=== PATIENT | female | born 1980 | race Caucasian/White ===

== ENCOUNTER → 2016-10-16 | Outpatient (CLI) | payer BC ==
--- NOTE | 2016-10-16 12:17 | REP ---
Clinical: Contusion. Technique: Frontal view of the chest with multiple views of the bilateral hemithoraces. Findings: Nondisplaced anterior right ninth and left ninth and tenth rib fractures. Mediastinum and cardiac silhouette normal. Lung gama clear. No consolidation/contusion, effusion, or pneumothorax. Impression: Right ninth and left ninth and tenth anterolateral rib fractures. Signed by Brad Aguirre MD 10/16/2016 12:08 P
--- NOTE | 2016-10-16 12:19 | REP ---
Clinical: Contusion. Technique: Single supine view of the abdomen and pelvis. Findings: Acute left tenth rib and the right ninth rib fractures are identified. Bowel gas pattern is nonspecific. No organomegaly. Impression: Acute left tenth and right ninth rib fractures. Nonspecific bowel gas pattern. Signed by Brad Aguirre MD 10/16/2016 12:10 P
== END ==
LOC: M WUC 11:47
PROVIDERS: ATTEND Physician Assistant
DX: S22.31XA Fracture of one rib, right side, initial encounter for closed fracture (principal); S22.42XA Multiple fractures of ribs, left side, initial encounter for closed fracture; X58.XXXA Exposure to other specified factors, initial encounter; Y93.9 Activity, unspecified; Y92.9 Unspecified place or not applicable; Y99.8 Other external cause status

== ENCOUNTER → 2019-04-12 | Outpatient (CLI) | payer BC ==
[2019-04-12 20:19] LABS: BASO % 0.3 % (0.0-1.0); EOS % 0.3 % (0.0-3.0); HEMATOCRIT 41.7 % (36.0-47.0); HEMOGLOBIN 13.8 g/dl (12.0-15.5); LYMPH # 0.8 10^3/uL (1.5-4.5); LYMPH % 8.7 % (24.0-44.0); MEAN CORPUSCULAR HEMOGLOBIN 32.2 pg (27.0-33.0); MEAN CORPUSCULAR HGB CONC 33.1 g/dl (32.0-36.5); MEAN CORPUSCULAR VOLUME 97.4 fl (80.0-96.0); MONO # 0.7 10^3/uL (0.0-0.8); MONO % 7.5 % (0.0-5.0); NEUTROPHILS # 7.7 10^3/uL (1.8-7.7); PLATELET COUNT, AUTOMATED 257 10^3/uL (150-450); RED BLOOD COUNT 4.28 10^6/uL (4.00-5.40); WHITE BLOOD COUNT 9.3 10^3/uL (4.0-10.0)
[2019-04-12 20:30] LABS: ALT/SGPT 40 U/L (12-78); AMYLASE 48 U/L (25-115); BILIRUBIN,TOTAL 0.7 MG/DL (0.2-1.0); BLOOD UREA NITROGEN 11 MG/DL (7-18); CALCIUM LEVEL 9.5 MG/DL (8.5-10.1); CARBON DIOXIDE LEVEL 29 MEQ/L (21-32); CHLORIDE LEVEL 103 MEQ/L (98-107); CREATININE FOR GFR 0.82 MG/DL (0.55-1.30); GLOMERULAR FILTRATION RATE > 60.0 (>60); GLUCOSE, FASTING 107 MG/DL (70-100); LIPASE 285 U/L (73-393); POTASSIUM SERUM 3.5 MEQ/L (3.5-5.1); SODIUM LEVEL 140 MEQ/L (136-145); TOTAL PROTEIN 7.2 GM/DL (6.4-8.2)
[2019-04-16 00:07] LABS: EBV AB TO NUCLEAR ANTIGEN 19.1 U/mL (0.0-17.9); EBV VIRAL CAPSID AG IgM <36.0 U/mL (0.0-35.9)
== END ==
LOC: M WUC 16:45
PROVIDERS: ATTEND Physician Assistant
DX: R10.30 Lower abdominal pain, unspecified (principal); J02.9 Acute pharyngitis, unspecified; R53.83 Other fatigue

== ENCOUNTER → 2019-04-14 | Outpatient (REF) | payer BC | LOC: M LAB REF 12:33 | PROVIDERS: ATTEND Physician Assistant | DX: R19.7 Diarrhea, unspecified (principal) ==

== ENCOUNTER → 2020-02-11 | Outpatient (CLI) | payer BC ==
--- NOTE | 2020-02-13 16:02 | REP ---
Five views right hand: 02/11/2020. Indication: Pain following injury. Comparison: None. Findings: There is no acute fracture, subluxation or dislocation. No lytic or blastic lesions are present. No significant arthritides are present. Impression: No acute fracture. Electronically Signed by Joaquin Silva DO 02/13/2020 03:53 P
== END ==
LOC: M WUC 13:48
PROVIDERS: ATTEND Physician Assistant
DX: S60.221A Contusion of right hand, initial encounter (principal); W18.30XA Fall on same level, unspecified, initial encounter; Y92.9 Unspecified place or not applicable

== ENCOUNTER → 2020-05-24 | Outpatient (CLI) | payer BC ==
--- NOTE | 2020-05-31 12:45 | REP ---
LEFT RIB SERIES HISTORY: Fall with chest pain. TECHNIQUE: Four views of the left ribs are performed in various projections. FINDINGS: There are minimally displaced fractures of the lateral left ninth and tenth ribs. No other rib fracture or lesion is seen. A PA view of the chest demonstrates no acute infiltrate or pneumothorax. Heart is normal in size and the mediastinal silhouette is unremarkable. IMPRESSION: Acute fractures of the lateral left ninth and tenth ribs. MTDD
== END ==
LOC: M WUC 11:57
PROVIDERS: ATTEND Nurse Practitioner Family
DX: S22.42XA Multiple fractures of ribs, left side, initial encounter for closed fracture (principal); W06.XXXA Fall from bed, initial encounter; R07.9 Chest pain, unspecified; Y92.9 Unspecified place or not applicable

== ENCOUNTER 2022-07-03 13:43 | Emergency (ER) | payer BC ==
[2022-07-03 15:36] LABS: HEMATOCRIT 36.2 % (36.0-47.0); HEMOGLOBIN 11.7 g/dl (12.0-15.5); MEAN CORPUSCULAR HGB CONC 32.3 g/dl (32.0-36.5); PLATELET COUNT, AUTOMATED 453 10^3/uL (150-450); RED BLOOD COUNT 3.77 10^6/uL (4.00-5.40); WHITE BLOOD COUNT 5.9 10^3/uL (4.0-10.0)
[2022-07-03 15:59] LABS: HCG, SERUM QUALITATIVE NEGATIVE (NEGATIVE)
[2022-07-03 16:22] LABS: AMPHETAMINES LEVEL URINE NEGATIVE (NEGATIVE); BARBITURATES URINE NEGATIVE (NEGATIVE); BENZODIAZEPINES URINE NEGATIVE (NEGATIVE); CANNABINOIDS URINE POSITIVE (NEGATIVE); COCAINE METABOLITE URINE NEGATIVE (NEGATIVE); METHADONE URINE NEGATIVE (NEGATIVE); OPIATES URINE NEGATIVE (NEGATIVE); PHENCYCLIDINE URINE NEGATIVE (NEGATIVE)
[2022-07-03 16:29] LABS: ACETAMINOPHEN LEVEL 7.7 UG/ML (10.0-30.0); ALBUMIN 3.9 GM/DL (3.2-5.2); ALT/SGPT 25 U/L (12-78); BILIRUBIN,DIRECT 0.1 MG/DL (0.0-0.2); BILIRUBIN,TOTAL 0.5 MG/DL (0.2-1.0); BLOOD UREA NITROGEN 6 MG/DL (7-18); CALCIUM LEVEL 9.1 MG/DL (8.5-10.1); CARBON DIOXIDE LEVEL 29 MEQ/L (21-32); CHLORIDE LEVEL 106 MEQ/L (98-107); CREATININE FOR GFR 0.74 MG/DL (0.55-1.30); ETHYL ALCOHOL (ETHANOL) < 0.003 % (0.000-0.010); GLOMERULAR FILTRATION RATE > 60.0 (>58); GLUCOSE, FASTING 98 MG/DL (70-100); POTASSIUM SERUM 4.4 MEQ/L (3.5-5.1); SALICYLATE LEVEL < 1.7 MG/DL (5.0-30.0); SODIUM LEVEL 140 MEQ/L (136-145); TOTAL PROTEIN 7.3 GM/DL (6.4-8.2)
[2022-07-03 19:27] VITALS: BP 130/80
== END 2022-07-03 19:33 | disposition home or self-care (01) ==
LOC: M ED 13:43
DX: F43.0 Acute stress reaction (principal); R45.88 Nonsuicidal self-harm; Z88.0 Allergy status to penicillin